=== PATIENT | female | born 1985 | race Native Hawaiian/Other Pacific Islander ===

== ENCOUNTER 2020-12-30 08:00 | Outpatient (CLI) | payer OTHER | END 2020-12-30 23:59 | disposition home or self-care (01) | LOC: LAB.R 08:00 | PROVIDERS: ATTEND Obstetrics & Gynecology | DX: Z36.85 Encounter for antenatal screening for Streptococcus B (principal) | CPT/HCPCS: 87797 ==

== ENCOUNTER 2021-01-08 13:48 | Inpatient (IN) | payer OTHER ==
[2021-01-08] MEDS ORDERED: SODIUM CHLORIDE FLUSH 0.9% 10 ML SYRINGE IVP PRN (14:49)
[2021-01-08] MEDS ORDERED: LIDOCAINE-MPF 1% 30 ML VIAL ID PRN (14:49)
[2021-01-08] MEDS ORDERED: TRANEXAMIC ACID IN NACL 1,000 MG/100 ML BAG IV PRN (14:49)
[2021-01-08] MEDS ORDERED: METHYLERGONOVINE 0.2 MG/ML VIAL IM PRN (14:49)
[2021-01-08] MEDS ORDERED: CARBOPROST TROMETHAMINE 250 MCG/ML AMP IM PRN (14:49)
[2021-01-08] MEDS ORDERED: miSOPROStoL 200 MCG TABLET BC PRN (14:49)
[2021-01-08] MEDS ORDERED: OXYTOCIN 10 UNIT/ML VIAL IM PRN (14:49)
[2021-01-08] MEDS ORDERED: OXYTOCIN/SODIUM CHLORIDE 500 ML IV PRN (14:49)
[2021-01-08] MEDS ORDERED: LACTATED RINGERS 1,000 ML IV SCH ×2 (15:00→23:45)
[2021-01-08 15:03] LABS: BASOPHILS % (AUTO) 0.4 %; EOSINOPHILS # (AUTO) 0.1 10^3/uL (0.0-0.7); EOSINOPHILS % (AUTO) 0.6 %; HCT - HEMATOCRIT 34.5 % (37.0-47.0); HGB - HEMOGLOBIN 11.9 g/dL (12.0-16.0); LYMPHOCYTES # (AUTO) 1.7 10^3/uL (1.5-3.5); LYMPHOCYTES % (AUTO) 16.3 %; MEAN CORPUSCULAR HEMOGLOBIN 30.3 pg (27.0-31.0); MEAN CORPUSCULAR HGB CONC 34.5 g/dL (32.0-36.0); MEAN CORPUSCULAR VOLUME 87.8 fL (81.0-99.0); MEAN PLATELET VOLUME 8.6 fL (7.9-10.8); MONOCYTES # (AUTO) 0.6 10^3/uL (0.0-1.0); MONOCYTES % (AUTO) 6.3 %; NEUTROPHILS # (AUTO) 7.6 10^3/uL (1.5-6.6); NEUTROPHILS % (AUTO) 74.1 %; PLT - PLATELET COUNT 251 10^3/uL (130-450); RED BLOOD COUNT 3.93 10^6/uL (4.20-5.40); RED CELL DISTRIBUTION WIDTH 13.4 % (12.0-15.0); WHITE BLOOD COUNT 10.2 x10^3/uL (4.8-10.8)
[2021-01-08] MEDS ORDERED: ROPIVACAINE 0.2% 200 MG/100 ML BAG EP ONE (16:16)
[2021-01-08] MEDS ORDERED: diphenhydrAMINE INJ 50 MG/ML VIAL IVP PRN (16:59)
[2021-01-08] MEDS ORDERED: METOCLOPRAMIDE 10 MG/2 ML VIAL IVP PRN (16:59)
[2021-01-08] MEDS ORDERED: ePHEDrine 50 MG/ML VIAL IVP PRN (16:59)
[2021-01-08] MEDS ORDERED: NALOXONE 0.4 MG/ML VIAL IVP PRN (16:59)
[2021-01-08] MEDS ORDERED: NALBUPHINE 10 MG/ML AMP IVP PRN (16:59)
[2021-01-08] MEDS ORDERED: ONDANSETRON 4 MG/2 ML VIAL IVP PRN (16:59)
--- NOTE | 2021-01-08 16:59 | ANESTHESIA ---
Pre-Anesthesia VS, & Labs - Diagnosis active labor - Procedure labor epidural Vital Signs: Temp Pulse Resp BP Pulse Ox 36.7 C 01/08/21 14:54 Height: 5 ft 2 in Weight (kg): 76.657 kg Body Mass Index: 30.9 BMI Classification: Obese - Is Patient ?: Yes - Lab Results Current Lab Results: Laboratory Tests 01/08/21 14:30: WBC 10.2, RBC 3.93 L, Hgb 11.9 L, Hct 34.5 L, MCV 87.8, MCH 30.3, MCHC 34.5, RDW 13.4, Plt Count 251, MPV 8.6, Neut # (Auto) 7.6 H, Lymph # (Auto) 1.7, [place] # (Auto) 0.6, Eos # (Auto) 0.1, Baso # (Auto) 0.0, Absolute Nucleated RBC 0.00, Nucleated RBC % 0.0 01/08/21 14:30: Blood Type A POSITIVE, Antibody Screen NEGATIVE Fish Bones: 01/08/21 14:30 Home Medications and Allergies Active Medications Carboprost Tromethamine (Carboprost Tromethamine 250 Mcg/Ml Amp) 250 mcg IM Q15M PRN PRN Reason: Step 4: Hemorrhage protocol Stop: 01/13/21 14:50 Oxytocin/Sodium Chloride (Pitocin/Sodium Chloride) 500 mls @ 999 mls/hr IV PRN PRN; Protocol PRN Reason: POST- HEMORR PREVENTION Stop: 01/13/21 14:50 Tranexamic Acid (Tranexamic 1,000 Mg/100ml-Nacl) 1,000 mg in 100 mls @ 600 mls/hr IV .ONCE PRN PRN Reason: EBL >1200mL and within 3hr Stop: 01/13/21 14:50 Lactated Ringer's (Lr) 1,000 mls @ 150 mls/hr IV .Q6H40M GREG Last Admin: 01/08/21 15:40 Dose: 150 mls/hr Documented by: Lidocaine HCl (Lidocaine-Mpf 1% 30 Ml Vial) 30 ml ID .ONCE PRN PRN Reason: PERINEAL REPAIR Stop: 01/13/21 14:50 Methylergonovine Maleate (Methylergonovine 0.2 Mg/Ml Vial) 0.2 mg IM .ONCE PRN PRN Reason: Step 2: Hemorrhage protocol Stop: 01/13/21 14:50 Misoprostol (Misoprostol 200 Mcg Tablet) 800 mcg BC .ONCE PRN PRN Reason: Step 3: Hemorrhage protocol Stop: 01/13/21 14:50 Oxytocin (Oxytocin 10 Unit/Ml Vial) 10 unit IM .ONCE PRN PRN Reason: Step one: If no IV access Stop: 01/13/21 14:50 Sodium Chloride (Sodium Chloride Flush 0.9% 10 Ml Syringe) 10 ml IVP PRN PRN PRN Reason: NEEDED PER PROVIDER ORDERS Allergies/Adverse Reactions: Allergies Allergy/AdvReac Type Severity Reaction Status Date / Time bupropion Allergy Unknown Verified 01/08/21 15:42 Anes History & Medical History - Anesthetic History Anesthesia Complications: reports: No previous complications Family history of Anesthesia Complications: Denies Family history of Malignant Hyperthermia: Denies - Medical History Smoking Status: Never smoker Exam General: Alert Dental: WNL Mouth Openin Fingerbreadth Neck Mobility: Normal Mallampati classification: I Respiratory: Lungs clear Cardiovascular: Regular rate Plan Anesthesia Type: Epidural Consent for Procedure(s) Verified and Reviewed: Yes Code Status: Attempt Resuscitation ASA classification: 2-Mild systemic disease Is this case an emergency?: No
--- NOTE | 2021-01-08 18:08 | PREOP HISTORY & PHYSICAL ---
DATE OF SERVICE: 01/08/2021 Physician: Luis Fallon MD IDENTIFICATION: The patient is a 35-year-old , AB1 female whose EDC is 01/17/2021. She is curr ently 38 weeks and 5 days. CHIEF COMPLAINT: Spontaneous rupture of membranes. HISTORY OF PRESENT ILLNESS: Patient is being seen in the clinic today, at which time a pelvic examin ation was done to determine the cervical dilatation for probable induction this following Tuesday. At time of her exam, she spontaneously ruptured with clear amniotic fluid. The cervix at that time was felt to be 4 cm. She was 90% and -1 station, vertex presentation. OBSTETRIC HISTORY: The patient was initially seen at the [facility] and transferred to our care at 35 week s EGA. Her OB care showed her to be A positive, rubella immune. Her STI checks were all negative. Her 50 gram Glucola was 109. She had a GBS culture done, which was noted to be negative. PAST MEDICAL HISTORY: The patient denies any hypertensive, diabetic, cardiac, or pulmonary disease.. PAST SURGICAL HISTORY: None. ALLERGIES: BUPROPION. MEDICATIONS: vitamins. HABITS: The patient denies use of alcohol, tobacco, street or addictive drugs. 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 PHYSICAL EXAM GENERAL: The patient is well-developed, well-nourished female. She is in no acute distress at this time. HEENT: Pupils equal, round. Extraocular muscles intact. Thyroid is not palpably enlarged. HEART: Regular rate and rhythm. No murmurs. LUNGS: Lung collins are clear without rales or wheezes. BACK: No spinal or CVA tenderness noted. ABDOMEN: Gravid. On her last exam, she was noted to be 38 cm. IMPRESSION 1. A 35-year-old G4, P2, AB1 female who is 38 weeks and 5 days. 2. Spontaneous rupture of membranes. PLAN: The patient being admitted for delivery. We will administer epidural. We will utilize Pitoci n as needed. Expect . TD: 01/08/2021 18:06
[2021-01-08] MEDS: OXYTOCIN/SODIUM CHLORIDE 500 ML IV SCH ×2 (18:37→21:02)
--- NOTE | 2021-01-08 21:27 | PROVIDER PROGRESS NOTE ---
Labor Progress Note - Monitoring Heart Rate Baseline: 140 Heart Rate Variability: positive: Moderate (6-25 bmp) Accelerations: positive: Present, 10x10 (=/32 wks) Decelerations: positive: None Strip Review: positive: Category I - Vaginal Exam Dilation (in cm): C Effacement (%): 100% Station: -1 Cervical Position: Anterior - Labor Progress Note Labor Progress Note/Additional Text: Hx of short Second stage Start pushing
[2021-01-08] MEDS ORDERED: diphenhydrAMINE 25 MG CAPSULE PO PRN (23:01)
[2021-01-08] MEDS ORDERED: ONDANSETRON ODT 4 MG TABLET TL PRN (23:01)
[2021-01-08] MEDS ORDERED: oxyCODONE 5 MG TABLET PO PRN (23:01)
[2021-01-08] MEDS ORDERED: HYDROCORTISONE 1% CREAM 28 GM TUBE PR PRN (23:01)
[2021-01-08] MEDS ORDERED: WITCH HAZEL/GLYCERIN 1 PAD TOP PRN (23:01)
--- NOTE | 2021-01-08 23:08 | DELIVERY NOTE ---
Delivery Note - Labor Labor: positive: Augmented by oxytocin - Delivery Method Delivery Method: positive: Vacuum assist - Presentation Presentation: positive: Vertex, CHITRA - left occiput anterior - Nuchal Cord Nuchal Cord: positive: None - Anesthetic Anesthetic Type: - Amniotic Fluid Description Amniotic Fluid Description: positive: Clear - Vacuum Use Indication for Vacuum Use: positive: Shortening of 2nd stage for maternal benefit Type of Vacuum Cup: positive: Cup: Rigid Vacuum Extraction: positive: Successful Number of pop-offs: 0 - Episiotomy Type Episiotomy Type: positive: None - Laceration Laceration: positive: 2nd degree, Perineal - Suture Suture Type: positive: Vicryl Suture Size: positive: 3-0 - Delivery Outcome Delivery Outcome: positive: Livebirth (11/18) - [place] : positive: Placed in direct skin contact with mother, Suctioned, Bulb syringe [place] sex: positive: Male - Cord Cord: positive: 3 vessels - Placenta Placenta: positive: Intact - Estimated Blood Loss Estimated Blood Loss (in cc): 400 - Post Delivery Events Post Delivery Events: positive: No post delivery events - Delivery Comments (Free Text/Narrative) Delivery Comments (Free Text/Narrative): Patient will being seen in the office this afternoon spontaneously ruptured during pelvic examination. She was transferred over to labor and delivery for augmentation of labor. At time of her exam she was 4 cm dilated 80% effaced and -1. Upon presentation here she had a labor epidural placed for analgesia. She showed good progress and reached complete at 2111. She started pushing at 2129. It was expected that she would have a short second stage because she pushed only 3 times with the delivery of her last child. However she pushed well and at Head. Following delivered to the shoulder dystocia she delivered the body at 2225. During this time Lamberto maneuvers were employed. Suprapubic pressure was employed and eventually a hand was placed in the vagina at which the posterior left arm was delivered. The infant followed. The cord was doubly clamped and divided and given to the advanced practice provider who was standing by. She initiated resuscitation and the infant had Apgars of 2 and 9. Her placenta followed at 2229 was inspected and noted to be complete there were numerous calcifications on it. A segment of cord was clamped and sent for cord gases. At time of this dictation baby is breast-feeding with mom and doing well. Nutrition noted a symmetric [place] response.
[2021-01-09] MEDS: ACETAMINOPHEN 500 MG TABLET PO SCH ×3 (00:27→16:32)
[2021-01-09] MEDS: IBUPROFEN 800 MG TABLET PO SCH ×4 (00:27→18:41)
[2021-01-09] MEDS ORDERED: LIDOCAINE 1% 50 ML MDV TD ONE (01:39)
[2021-01-09] MEDS: DOCUSATE SODIUM 100 MG CAPSULE PO SCH ×2 (08:34→21:34)
--- NOTE | 2021-01-09 08:41 | PROVIDER PROGRESS NOTE ---
Subjective - Prog Note Date Prog Note Date: 01/09/21 Prog Note Time: 08:39 - Subjective Pt reports feeling: Improved (Pain 2/10, voiding. breast feeding.) Objective - Vital Signs/Intake & Output Reviewed Vital Signs: Yes Vital Signs: Vital Signs x48h Temp Pulse Resp BP Pulse Ox 01/09/21 07:59 36.5 C 76 20 118/78 100 01/09/21 02:37 36.6 C 90 16 97/48 L Intake & Output: Intake & Output 01/06/21 01/07/21 01/08/21 01/09/21 23:59 23:59 23:59 23:59 Intake Total 2.417 687.133 Output Total 600 Balance -597.583 687.133 - Objective General Appearance: positive: No acute distress, Alert Respiratory: positive: Chest non-tender, No respiratory distress, Breath sounds nml Cardiovascular: positive: Regular rate & rhythm, No murmur, No gallop Abdomen: positive: Non-tender, No organomegaly, Nml bowel sounds, Mass (U+1 uterus is firm) Extremities: negative: Calf tenderness, Mayito's sign/cords - Lab Results Fish Bones: 01/08/21 14:30 Other Labs: Lab Results x24hrs 01/08/21 01/08/21 01/08/21 Range/Units 15:00 14:30 14:30 WBC 10.2 (4.8-10.8) x10^3/uL RBC 3.93 L (4.20-5.40) 10^6/uL Hgb 11.9 L (12.0-16.0) g/dL Hct 34.5 L (37.0-47.0) % MCV 87.8 (81.0-99.0) fL MCH 30.3 (27.0-31.0) pg MCHC 34.5 (32.0-36.0) g/dL RDW 13.4 (12.0-15.0) % Plt Count 251 (130-450) 10^3/uL MPV 8.6 (7.9-10.8) fL Neut # (Auto) 7.6 H (1.5-6.6) 10^3/uL Lymph # (Auto) 1.7 (1.5-3.5) 10^3/uL [place] # (Auto) 0.6 (0.0-1.0) 10^3/uL Eos # (Auto) 0.1 (0.0-0.7) 10^3/uL Baso # (Auto) 0.0 (0.0-0.1) 10^3/uL Absolute Nucleated RBC 0.00 x10^3/uL Nucleated RBC % 0.0 /100WBC Coronavirus (PCR) NEGATIVE Blood Type A POSITIVE Antibody Screen NEGATIVE Assessment/Plan - Problem List (1) Vacuum extraction, delivered, current hospitalization Impression: excellent progress anticipate discharge tomorrow.
--- NOTE | 2021-01-09 10:26 | PROVIDER PROGRESS NOTE ---
Subjective - Subjective Subjective: S: Patient eating, urinating, ambulating, and well. No heavy bleeding or mood problems. Pain is under good control. AVSS Alert, smiling, no apparent distress Abd soft, nontender, non-distended Fundus nontender at umbilicus Trace lower extremity edema Impression and plan: 35yo P3 PPD #0.5 s/p VAVD at term, uncomplicated course, elective 39w IOL, plan for routine care. Rh+, RI, , s/p Tdap. Objective - Vital Signs/Intake & Output Vital Signs: Vital Signs x48h Temp Pulse Resp BP Pulse Ox 01/09/21 07:59 97.7 F 76 20 118/78 100 01/09/21 02:37 98 F 90 16 97/48 L Intake & Output: Intake & Output 01/06/21 01/07/21 01/08/21 01/09/21 23:59 23:59 23:59 23:59 Intake Total 2.417 687.133 Output Total 600 Balance -597.583 687.133 - Lab Results Fish Bones: 01/08/21 14:30 Other Labs: Lab Results x24hrs 01/08/21 01/08/21 01/08/21 Range/Units 15:00 14:30 14:30 WBC 10.2 (4.8-10.8) x10^3/uL RBC 3.93 L (4.20-5.40) 10^6/uL Hgb 11.9 L (12.0-16.0) g/dL Hct 34.5 L (37.0-47.0) % MCV 87.8 (81.0-99.0) fL MCH 30.3 (27.0-31.0) pg MCHC 34.5 (32.0-36.0) g/dL RDW 13.4 (12.0-15.0) % Plt Count 251 (130-450) 10^3/uL MPV 8.6 (7.9-10.8) fL Neut # (Auto) 7.6 H (1.5-6.6) 10^3/uL Lymph # (Auto) 1.7 (1.5-3.5) 10^3/uL [place] # (Auto) 0.6 (0.0-1.0) 10^3/uL Eos # (Auto) 0.1 (0.0-0.7) 10^3/uL Baso # (Auto) 0.0 (0.0-0.1) 10^3/uL Absolute Nucleated RBC 0.00 x10^3/uL Nucleated RBC % 0.0 /100WBC Coronavirus (PCR) NEGATIVE Blood Type A POSITIVE Antibody Screen NEGATIVE
[2021-01-10] MEDS: ACETAMINOPHEN 500 MG TABLET PO SCH (00:22)
[2021-01-10] MEDS: IBUPROFEN 800 MG TABLET PO SCH ×2 (00:32→06:43)
[2021-01-10 08:36] VITALS: BP 106/62
--- NOTE | 2021-01-10 09:23 | Discharge Plan ---
Discharge Plan Problem Reviewed?: Yes Disposition: Home, Self Care Condition: Good Diet: Regular Activity Restrictions: see RN instructions Shower Restrictions: No Driving Restrictions: No No Smoking: If you smoke, Please STOP! Call for help. Follow-up with: Luis Fallon MD [Provider Admit Priv/Credential] - 1 Week
--- NOTE | 2021-01-10 10:48 | Labor Flowsheet ---
Labor Flowsheet Datetime Report Generated by CPN: 01/10/2021 10:48 Datetime: 01/09/2021 23:13 VITAL SIGNS NBP Sys/Dorcas/Mean (mmHg): 95 : 43 : 56 Pulse: 80 Datetime: 01/09/2021 00:30 Respirations: 16 Datetime: 01/08/2021 23:22 Membranes Ruptured Date/Time: 01/08/2021 13:30 Amniotic Fluid Odor: Normal Datetime: 01/08/2021 22:31 Stage of : Recovery Datetime: 01/08/2021 22:26 Patient Care Comments: delivery of shoulders and body. Provider hands on infant to recusitati ve team immediately after cord clamp. Pediatric provider, nursery RN and respiratory therapist attend to . See recessitation note by recieving provider. NRP protocol followed and recieved P PV. Apgars 2/9. Datetime: 01/08/2021 22:21 STAGE 2 Pushing: Coached on Pushing Pushing Position: Pushing Lithotomy Vacuum: On Station Vacuum/Forceps Applied: see provider dictation Datetime: 01/08/2021 22:20 UTERINE ACTIVITY Monitor Mode: External Quality: Strong Duration (sec): pushes Pattern: Normal: <= 5 Contractions in 10 Minutes Resting Tone (Palpate): Relaxed ASSESSMENT A Monitor Mode: External US FHR Baseline Rate : 150 Variability: Minimal - Undetectable to <=5 bpm Accelerations: None Decelerations: Variable Category: Category II Datetime: 01/08/2021 22:18 Vaginal Exam Comments: +1 station with push. MD at perineum and continues to push with patient. Datetime: 01/08/2021 22:15 Frequency (min): 2-2.5 Comments: pushing continues LaborFlag: Labor Datetime: 01/08/2021 22:03 Communication Comments: u/s hand held to obtain FHT Datetime: 01/08/2021 22:00 Pushing Progress: Descent with Pushing; Pushing Effectively with Contractions Datetime: 01/08/2021 21:36 Medication Comments: IV pitocin increased to 5 per MD verbal orders Datetime: 01/08/2021 21:19 SpO2 (%): 100 Datetime: 01/08/2021 21:12 VAGINAL EXAM Dilatation (cm): 10.0 Datetime: 01/08/2021 20:20 Temperature (C): 36.9 Datetime: 01/08/2021 20:18 MEDICATIONS Pitocin (milliunits): Increased to @ 3 Datetime: 01/08/2021 20:00 PAIN Pain Scale: 4 Pain Assessment Comments: patient states she's comfortable with epidural pain managment Datetime: 01/08/2021 19:48 Anesthesia Comments: anesthesia at bedside to evaluate patient and epidural pump reviewed with RN. Patient reports feeling very comfortable and denies current needs. Datetime: 01/08/2021 19:16 FHR Baseline Changes: No Baseline Change Datetime: 01/08/2021 18:37 Pitocin Checklist: At Least 1 Acceleration of 15 bpm x 15 Seconds in 30 Minutes or Adequate Variabi lity; No More than 1 Late Deceleration Occurred in Past 30 Minutes; No More than 2 Variable Decelerat ions > 60 Seconds in Duration and decreasing >60 bpm in 30 minutes; No More than 5 Uterine Contractio ns in 10 Minutes for any 20 Minute Interval Datetime: 01/08/2021 17:40 Effacement (%): 100 Station: -2 Exam by: Dr. Fallon Datetime: 01/08/2021 17:37 COMMUNICATION Communication: Provider at Bedside Datetime: 01/08/2021 17:31 PATIENT CARE Patient Position/Activity: Right Tilt; Semi-Fowlers Datetime: 01/08/2021 17:30 Actions for Decelerations: Side to Side; IV Bolus; Provider Notified Datetime: 01/08/2021 17:05 I/O Interventions: Plaza Cath Inserted Anesthesia Level Check: T10- Umbilicus Datetime: 01/08/2021 16:52 Monitor Interventions for UA: [place] Adjusted Datetime: 01/08/2021 16:41 Hygiene: Karla Care Datetime: 01/08/2021 16:36 Epidural Procedure: Test Dose Datetime: 01/08/2021 16:11 Monitor Interventions for FHR: Ultrasound Adjusted Datetime: 01/08/2021 16:07 ANESTHESIA Epidural Positioning: Sitting Datetime: 01/08/2021 15:02 Amniotic Fluid Color: Light Meconium Membrane Comments: will cont. to monitor.
--- NOTE | 2021-01-11 09:12 | DISCHARGE SUMMARY ---
Physician: Cindy Akers MD DATE OF ADMISSION: 01/08/2021 DATE OF DISCHARGE: 01/10/2021 ADMISSION DIAGNOSES 1. Intrauterine at 39 weeks. 2. Desires elective induction of labor. DISCHARGE DIAGNOSES 1. Status post vacuum-assisted vaginal delivery. 2. Shoulder dystocia. HOSPITAL COURSE: The patient was admitted for her induction of labor, which progressed nicely. Duri ng the second stage, she required a vacuum for maternal exhaustion and did develop a shoulder dystoci a. The patient is planning to have her partner be sterilized, and so this will not be an issue in e future. After delivery, she was doing well. She was eating, ambulating, urinating, and breastfeed ing without difficulties. Her pain was well controlled. Her mood was good. She was not having any heavy bleeding. PHYSICAL EXAM VITALS: She was afebrile with normal vital signs. GENERAL: Alert and smiling, in no apparent distress. ABDOMEN: Soft, nontender, nondistended. Fundus firm, nontender, and 2 cm below the umbilicus. DISPOSITION: Home. CONDITION: Good. DISCHARGE PRECAUTIONS: Routine . Follow up in 1 week with [facility] and then at 6 w eeks at the [facility] for her Nexplanon insertion. TD: 01/10/2021 11:55
== END 2021-01-10 10:40 | disposition home or self-care (01) | DRG 807 ==
LOC: WFO 13:48 → FBP 13:57 → WFO 14:49 → FBP 14:49
PROVIDERS: ADMIT Obstetrics & Gynecology; ATTEND Obstetrics & Gynecology
PROC: 10D07Z6 Extraction of Products of Conception, Vacuum, Via Natural or Artificial Opening (ICD-10-PCS; principal; 2021-01-08)
PROC: 0KQM0ZZ Repair Perineum Muscle, Open Approach (ICD-10-PCS; 2021-01-08)
DX: O70.1 Second degree perineal laceration during delivery (principal); Z37.0 Single live birth; O66.0 Obstructed labor due to shoulder dystocia; Z3A.38 38 weeks gestation of pregnancy; Z20.822 Contact with and (suspected) exposure to COVID-19
CPT/HCPCS: 85025; 86850; 86900; 86901; 87635; A9270; J7120; 81599

== ENCOUNTER 2022-06-16 16:48 | Outpatient (CLI) | payer OTHER ==
--- NOTE | 2022-06-17 17:12 | XRAY Report ---
PROCEDURE: Chest 2 View X-Ray INDICATIONS: COUGH, HX OF SMOKING TECHNIQUE: 2 view(s) of the chest. COMPARISON: None. FINDINGS: Surgical changes and devices: None. Lungs and pleura: No pleural effusions or pneumothorax. Lungs are clear. Mediastinum: Mediastinal contours are normal. Heart size is normal. Bones and chest wall: No suspicious bony abnormalities. Soft tissues appear unremarkable. IMPRESSION: No acute cardiopulmonary disease. Reviewed by: Jerald Baird MD on 06/17/2022 5:10 PM PDT Approved by: Jerald Baird MD on 06/17/2022 5:10 PM PDT Station ID: [id number]
== END 2022-06-16 16:49 | disposition home or self-care (01) ==
LOC: DI.N 16:48
PROVIDERS: ATTEND Internal Medicine
DX: R05.9 Cough, unspecified (principal); Z87.891 Personal history of nicotine dependence